=== PATIENT | male | born 1985 | race Caucasian/White ===

== ENCOUNTER 2017-03-25 09:44 | Emergency (ER) | payer BC ==
[~2017-03-25] VITALS: Ht 170.2 cm; Wt 90.7 kg
[~2017-03-25 09:44] MED LIST: BACDS PO; CEPH500T7 PO; FLU10 PO; HYDR-385 PO; KET10 PO; LOR5/325 PO; MET500 PO; METH-543 PO; NEXIUM PO; NO ROUTINE MEDS; ONDA4TAB PO; OXYC-865 PO; PER PO; SAXA2.5T3 PO; TIZA4CAP3 PO; [UNRECOGNIZED DRUG - CODE] PO
[2017-03-25] MEDS ORDERED: AMOXICILLIN 500 MG CAP PO ONE (10:25)
[2017-03-25] MEDS ORDERED: IBUPROFEN 800 MG TAB PO ONE (10:25)
[2017-03-25] MEDS ORDERED: AMOX500T10 PO (10:30)
--- NOTE | 2017-03-25 10:31 | ER Report ---
History and Physical Time Seen By MD: 10:26 Hx. of Stated Complaint: EAR PAIN X 3 DAYS. BEEN SICK ABOUT A WEEK AND TAKING EVERYTHING OVER THE COUNTER HE CAN THINK OF. TODAY EAR PAIN IS UNBEARABLE HPI/ROS CHIEF COMPLAINT: Right ear pain for 72 hours HISTORY OF PRESENT ILLNESS: Patient is an otherwise healthy 32-year-old male presents emergency department with complaint of right ear pain for the past 2-3 days. He does not have pain with pressure or traction of the ear itself. Had a upper respiratory infection approximately one week ago that improved and then 2 days ago developed ear pain. Allergies: Coded Allergies: No Known Drug Allergies (Unverified , 03/25/17) Home Meds Discontinued Scripts Hydrocodone Bit/Acetaminophen (HYDROCODON-ACETAMINOPHEN 5-325) 1 Each Tablet, 1 EACH PO Q4-6H Y for PAIN, #12 TAB Prov:ADALBERTO GARCIA [employer] WORK[employer] 07/16/16 Cephalexin 500 Mg Tab (KEFLEX 500 MG TAB) 500 Mg Tablet, 500 MG PO Q6H, #28 TAB Prov:ADALBERTO GARCIA [employer] WORKER 07/16/16 Past Medical/Surgical History Noncontributory Hx Smoking: Yes (1 daily) Smoking Status: Current: Every Day Smoker Exposure to Second Hand Smoke?: Yes Hx Substance Use Disorder: No Hx Alcohol Use: No Constitutional Vital Sign - Last 24 Hours 03/25/17 09:55 Temp 98.9 Pulse 89 Resp 14 B/P (MAP) 120/73 Pulse Ox 93 O2 Delivery Room Air Physical Exam General Appearance: Alert, no distress. ENT, Mouth: Ears: Left Tympanic membrane is normal. Examination of the right ear reveals no pain with traction of the pinna. Canal appears normal. The tympanic membrane on the right appears red and inflamed and there is evidence of hemorrhagic otitis media. Loss of normal landmarks. Nose: No bleeding. Patient does have some purulent discharge to the left naris Mouth: Mucous membranes are moist. Throat: No erythema or exudates there is no tonsillar hypertrophy and uvula is midline. Musculoskeletal: Neck is supple non tender, no adenopathy. Skin: Warm and dry, no rashes. Medical Decision Making ED Course/Re-evaluation ED Course 03/25/2017 10:28:20 am patient with obvious right otitis media. Plan will be amoxicillin and pain medication. Patient offered a note for work but refused. Decision to Disposition Date: Mar 25, 2017 Decision to Disposition Time: 10:28 Depart Departure Latest Vital Signs Vital Signs Date Time Temp Pulse Resp B/P (MAP) Pulse Ox O2 Delivery O2 Flow Rate FiO2 03/25/17 09:55 98.9 89 14 120/73 93 Room Air Impression: Primary Impression: Otitis media Condition: Improved Disposition: HOME OR SELF-CARE New Scripts Amoxicillin 500 Mg Tab (AMOXICILLIN 500 MG TAB) 500 Mg Tablet 2 TAB PO Q12H, #28 TAB 0 Refills Prov: IGOR PAREKH MD 03/25/17 Problem Qualifiers Primary Impression: Otitis media Otitis media type: suppurative Chronicity: acute Laterality: right Recurrence: not specified as recurrent Spontaneous tympanic membrane rupture: without spontaneous rupture Qualified Codes: H66.001 - Acute suppurative otitis media without spontaneous rupture of ear drum, right ear IGOR PAREKH MD Mar 25, 2017 10:30
[2017-03-25 10:41] VITALS: BP 124/76
== END 2017-03-25 10:45 | disposition home or self-care (01) ==
LOC: ER 10:12
DX: H66.001 Acute suppurative otitis media without spontaneous rupture of ear drum, right ear (principal)
CPT/HCPCS: 99282

== ENCOUNTER 2018-03-15 15:25 | Emergency (ER) | payer BC ==
[~2018-03-15 15:25] MED LIST changes: +AMOX500T10 PO
--- NOTE | 2018-03-15 15:27 | ER Report ---
History and Physical Time Seen By MD: 15:27 HPI/ROS CHIEF COMPLAINT: Left upper posterior molar pain times one week HISTORY OF PRESENT ILLNESS: Patient is a 33-year-old male here with complaints of progressive left upper posterior molar dental pain which has become reportedly severe prompting ED evaluation. Patient has attempted to apply [id number] dental cement without relief of symptoms. Patient also has tried NSAIDs without improvement. Nice dental trauma. REVIEW OF SYSTEMS: Constitutional: No fever, no chills. Eyes: No discharge. ENT: No sore throat. + Left upper posterior molar dental erosion at the base Skin: No rashes. Neurological: No focal neurological findings Allergies: Coded Allergies: No Known Drug Allergies (Unverified , 03/25/17) Home Meds Active Scripts Tramadol Hcl (TRAMADOL HCL) 50 Mg Tablet, 50 MG PO Q6H PRN for PAIN, #20 TAB 0 Refills Prov:AMINATA RUDOLPH DO 03/15/18 Amoxicillin/Pot Clav 875-125 Mg Tab (AUGMENTIN 875-125 TABLET) 1 Each Tablet, 1 TAB PO Q12H for 7 Days, #14 TAB Prov:AMINATA RUDOLPH DO 03/15/18 Discontinued Scripts Amoxicillin 500 Mg Tab (AMOXICILLIN 500 MG TAB) 500 Mg Tablet, 2 TAB PO Q12H, #28 TAB 0 Refills Prov:IGOR PAREKH MD 03/25/17 Hx Smoking: Yes (1 daily) Smoking Status: Current: Every Day Smoker Exposure to Second Hand Smoke?: Yes Hx Substance Use Disorder: No Hx Alcohol Use: No Constitutional Vital Sign - Last 24 Hours 03/15/18 15:30 Temp 97.8 Pulse 77 Resp 14 B/P (MAP) 130/85 Pulse Ox 92 O2 Delivery Room Air Physical Exam General Appearance: The patient is alert, has no immediate need for airway protection and no signs of toxicity. No acute distress Eyes: Pupils equal and round no pallor or injection. ENT, Mouth: + Left upper molar dental pain with small Kathy present at the bases with visible decay Respiratory: There are no retractions, lungs are clear to auscultation. Neurological: No focal neurological deficit Skin: Warm and dry, no rashes. DIFFERENTIAL DIAGNOSIS: After history and physical exam differential diagnosis was considered for dental fracture, dental abscess, dental Shivani Medical Decision Making ED Course/Re-evaluation ED Course Patient is a 33-year-old male here with complaints of left upper posterior molar dental pain likely secondary to cavity. Nerve block was completed using bupivacaine 0.5% with epinephrine. Patient was started on a course of Augmentin and was given Toradol and tramadol for analgesia with a prescription for Augmentin and tramadol for outpatient treatment until patient is able to follow- up with dentistry for evaluation. Patient no other acute findings. Return precautions provided. Procedure Superior alveolar nerve block was performed using approximately 4 mL of 0.5% bupivacaine with epinephrine. Patient tolerated procedure well. Hemostasis was achieved. Decision to Disposition Date: Mar 15, 2018 Decision to Disposition Time: 15:44 Depart Departure Latest Vital Signs Vital Signs Date Time Temp Pulse Resp B/P (MAP) Pulse Ox O2 Delivery O2 Flow Rate FiO2 03/15/18 15:30 97.8 77 14 130/85 92 Room Air Impression: Primary Impression: Dental abscess Condition: Improved Disposition: HOME OR SELF-CARE New Scripts Tramadol Hcl (TRAMADOL HCL) 50 Mg Tablet 50 MG PO Q6H PRN for PAIN, #20 TAB 0 Refills Prov: AMINATA RUDOLPH DO 03/15/18 Amoxicillin/Pot Clav 875-125 Mg Tab (AUGMENTIN 875-125 TABLET) 1 Each Tablet 1 TAB PO Q12H for 7 Days, #14 TAB Prov: AMINATA RUDOLPH DO 03/15/18 Patient Instructions: Dental Abscess (GEN) Additional Instructions: Please drink plenty of water. You may continue to take naproxen or Tylenol as needed for pain control. You may take 1 tramadol every 6-8 hours as needed for breakthrough pain control. Please take Augmentin 1 tablet twice daily for 7 days. Please follow up closely with dentistry to have your tooth evaluated for extraction. Please return immediately if you develop visual changes, pain with e ye movement, facial swelling, difficulty breathing or swallowing, fevers or chills. AMINATA RUDOLPH DO Mar 15, 2018 15:27
[2018-03-15 15:30] VITALS: BP 130/85
[2018-03-15] MEDS ORDERED: traMADol 50 MG TAB PO ONE (15:45)
[2018-03-15] MEDS ORDERED: KETOROLAC 60 MG/2 ML VIAL IM ONE (15:45)
[2018-03-15] MEDS ORDERED: AMOX/CLAV 875 MG TAB PO ONE (15:45)
[2018-03-15] MEDS ORDERED: AMOX-559 PO (15:51)
[2018-03-15] MEDS ORDERED: TRAM-420 PO (15:51)
== END 2018-03-15 16:05 | disposition home or self-care (01) ==
LOC: ER 15:37
DX: K04.7 Periapical abscess without sinus (principal)
CPT/HCPCS: 93005; 96372; 99283; D9110; J1885